=== PATIENT | male | born 1950 | race Caucasian/White ===

== ENCOUNTER 2019-06-13 06:52 | Day surgery (SDC) | payer OTHER ==
--- OUTSIDE RECORDS SUMMARY | 2019-06-13 06:54 | XMS REPORT | Continuity of Care Document ---
:1950 Author Organization [facility] Address [address] [place] [address] Phone Unavailable Care Team Providers Name Role Phone ANCELMO TOBIN MD Primary Care Physician Insurance Providers Guarantor Leydi Zimmer Address [address] [place] [address] Email [email or web address] [facility] Policy Number [id number] Subscriber's Name Leydi Zimmer Relationship Self / Same As Patient Group Number [id number] Group Name NA Advance Directives Directive Response Recorded Date/Time Advance Directives No 02/18/16 1:04am Advance Directive on File No 02/04/19 6:29pm Directive to Physicians/Living Will No 02/18/16 1:04am Health Care Proxy No 02/18/16 1:04am Name of Surrogate/Decision Maker NA 02/04/19 4:04pm Organ Donor No 02/18/16 1:04am Medical Power of Maternal Fetal Physician No 02/18/16 1:04am Patient/Family Given Education Material R/T Directives? Yes 02/04/19 6:29pm Chief Complaint and Reason for Visit Chief Complaint ANEMIA Reason for Visit Anemia Problems Medical Problem Onset Date Status ARF (acute renal failure) Unknown Acute Acute respiratory failure with hypoxemia Unknown Acute Afib Unknown Acute Anemia Unknown Acute Diabetes Unknown Chronic Hypotension Unknown Acute Osteoarthritis of hip Unknown Acute Pneumonia Unknown Acute Septic shock Unknown Acute Surgical Problem Onset Date Status Status post total hip replacement, left Unknown Acute Medications Current Home Medications Medication Dose Units Route Directions Days Qty Instructions Start Date Atorvastatin Calcium 1 Tab ORAL Daily 90 (Lipitor *) 20 Mg Tablet Tab Benzonatate 100 Mg ORAL Three Times 5 Days 3015 Cap (Tessalon *) 100 Mg Daily As 9 Cap Needed as needed for Cough Cefdinir (Omnicef*) 1 Cap ORAL Twice A Day 5 Days 1410 Cap 300 Mg Cap for 9 Bronchitis Glipizide (Glucotrol 5 Mg ORAL Twice A Day *) 5 Mg Tab Hydromorphone Hcl 8 Mg ORAL Every 4 Hours (Dilaudid 8 Mg *) 8 As Needed Mg Tab Lisinopril & 1 Tab ORAL Daily 30 Days 30 Hydrochlorothiazi * Tablet (Lisinopril/Hctz 20/12.5 Mg *) 1 Tab Tab Metformin Hcl 500 Mg ORAL Three Times A (Glucophage *) 500 Day Mg Tab Pioglitazone Hcl 30 Mg ORAL Daily 30 Days 30 (Actos *) 30 Mg Tab Tablet Past Home Medications Medication Directions Ordered Status Amlodipine Besylate (Norvasc *) 10 Daily Discontinued Mg Tab, 10 Mg Oral Diclofenac/Misoprostol (Arthrotec 75 Twice A Day Discontinued *) 1 Ea Tab, 1 Tab Oral Enoxaparin * (Lovenox 30 Mg/0.3 Ml Q12@05,17 for Dvt 12/19/16 Discontinued *) 30 Mg/0.3 Ml Inj, 30 Mg Subcutaneous Gabapentin (Neurontin *) 300 Mg Cap, Twice A Day Discontinued 300 Mg Oral Glyburide-Metformin 2.5/500MG * Once Daily Discontinued (Glucovance 2.5/500 Mg *) 1 Tab Tab, 1 Tab Oral Hydrochlorothiazide Daily Discontinued (Hydrochlorothiazide *) 25 Mg Tab, 1 Tab Oral Hydrocodone-Acetaminophen 10/325MG* Every 6 Hours As Needed for 12/19/16 Discontinued ([place] 10/325 Mg *) 1 Tab Tab, 1 Tab Pain Oral Hydromorphone Hcl (Hydromorphone Hcl Every 6 Hours As Needed Discontinued 4 Mg) 4 Mg Tab, 1-2 Tab Oral Hydromorphone Hcl (Hydromorphone Hcl Discontinued 4 Mg) 4 Mg Tab, Lisinopril (Prinivil 20 Mg*) 20 Mg Daily Discontinued Tab, 20 Mg Oral Lisinopril 5 Mg Tab, Discontinued Lisinopril & Hydrochlorothiazi * Once Daily Discontinued (Lisinopril/Hctz 20/25 Mg *) 1 Tab Tab, 1 Tab Oral Metformin Hcl (Glucophage *) 500 Mg Three Times A Day Discontinued Tab, 500 Mg Oral Rivaroxaban (Xarelto *) 10 Mg Tab, Daily Discontinued 15 Mg Oral Social History Social History Problem Response Recorded Date/Time Onset Date Status Hx Alcohol Use No 04/16/2017 8:38am Not Applicable Not Applicable Hx Physical Abuse No 02/04/2019 4:00pm Not Applicable Not Applicable Smoking Status Start Date Stop Date Former smoker Hospital Discharge Instructions No hospital discharge instruction information available. Plan of Care Discharge Date 02/05/19 3:08pm Disposition PATIENT DISCHARGE HOME OR SELF Instructions/Education Provided Cefdinir capsules Anemia Benzonatate capsules Forms Provided Portal Welcome Letter Prescriptions See Medication Section Functional Status No functional status information available. Allergies, Adverse Reactions, Alerts No known allergies. Immunizations No immunization information available. Vital Signs Acute Vital Signs Vital Response Date/Time Blood Pressure 115/65 mm Hg 02/05/2019 3:01pm Pulse Pulse Rate (adult) 81 beats per minute (60 - 100) 02/05/2019 3:01pm Respiratory Rate 14 breaths per minute (10 - 24) 02/05/2019 3:01pm Temperature Source Tympanic 02/05/2019 6:55am Height 5 ft 6 in 02/04/2019 4:00pm Weight 126.56 lb 02/05/2019 5:31am Body Mass Index 20.4 kg/m^2 02/05/2019 5:31am Results Laboratory Results Test Name Result Units Flags Reference Collection Result Comments Date/Time Date/Time White Blood Count 9.5 K/ul 4.0-12.3 02/05/2019 02/05/2019 6:03am 6:26am Red Blood Count 4.47 M/ul 3.80-5.80 02/05/2019 02/05/2019 6:03am 6:26am Hemoglobin 10.2 g/dl L 11.67-17.2 02/05/2019 02/05/2019 2 6:03am 6:26am Hematocrit 34.3 % #L 35.0-51.0 02/05/2019 02/05/2019 6:03am 6:26am Mean Corpuscular 76.8 fl L 78-96 02/05/2019 02/05/2019 Volume 6:03am 6:26am Mean Corpuscular 22.8 pg L 26.8-33.4 02/05/2019 02/05/2019 Hemoglobin 6:03am 6:26am Mean Corpuscular 29.7 g/dl L 32.3-36.7 02/05/2019 02/05/2019 Hemoglobin Concent 6:03am 6:26am Red Cell 21.1 % H 11.6-15.4 02/05/2019 02/05/2019 Distribution Width 6:03am 6:26am Platelet Count 352 K/ul #H 115-328 02/05/2019 02/05/2019 6:03am 6:26am Mean Platelet 6.1 fl L 8.4-11.8 02/05/2019 02/05/2019 Volume 6:03am 6:26am Neutrophils (%) 80.9 % 44.7-82.4 02/05/2019 02/05/2019 (Auto) 6:03am 6:26am Lymphocytes (%) 9.3 % L 10.0-50.0 02/05/2019 02/05/2019 (Auto) 6:03am 6:26am Monocytes (%) 8.5 % 3.9-13.4 02/05/2019 02/05/2019 (Auto) 6:03am 6:26am Eosinophils (%) 0.7 % 0.0-6.43 02/05/2019 02/05/2019 (Auto) 6:03am 6:26am Basophils (%) 0.6 % 0.0-0.72 02/05/2019 02/05/2019 (Auto) 6:03am 6:26am Neutrophils 76 37.0-80.0 02/04/2019 02/04/2019 4:35pm 5:33pm Band Neutrophils 6 H 0-3 02/04/2019 02/04/2019 4:35pm 5:33pm Lymphocytes 12 10-50 02/04/2019 02/04/2019 (Manual) 4:35pm 5:33pm Atypical 0 0 02/04/2019 02/04/2019 Lymphocytes 4:35pm 5:33pm Monocytes (Manual) 4 0-12 02/04/2019 02/04/2019 4:35pm 5:33pm Eosinophils 2 0-7 02/04/2019 02/04/2019 (Manual) 4:35pm 5:33pm Basophils (Manual) 0 0-3 02/04/2019 02/04/2019 4:35pm 5:33pm Platelet Estimate APPEAR ADEQUATE 02/04/2019 02/04/2019 INCREASED 4:35pm 5:33pm Abnormal Platelet NORMAL NORMAL 02/04/2019 02/04/2019 Morphology 4:35pm 5:33pm Hypochromasia 1+ H 02/04/2019 02/04/2019 4:35pm 5:33pm Poikilocytosis SLIGHT H 02/04/2019 02/04/2019 4:35pm 5:33pm Anisocytosis 1+ H 02/04/2019 02/04/2019 4:35pm 5:33pm Microcytosis 2+ 02/04/2019 02/04/2019 4:35pm 5:33pm Target Cells 1+ H 02/04/2019 02/04/2019 4:35pm 5:33pm Toxic Granulation 1+ H 02/04/2019 02/04/2019 4:35pm 5:33pm Rouleau SLIGHT H 02/04/2019 02/04/2019 4:35pm 5:33pm POC Capillary 145 mg/dL H 70.0 - 110 02/05/2019 02/05/2019 Blood Glucose 11:45am 11:48am (Chem) Random Glucose 104 mg/dL 82-115 02/05/2019 02/05/2019 6:03am 6:25am Blood Urea 17 mg/dL 8-23 02/05/2019 02/05/2019 Nitrogen 6:03am 6:25am Serum Osmolality 266 L 280-300 02/05/2019 02/05/2019 6:03am 6:25am Creatinine 1.0 mg/dL 0.70-1.20 02/05/2019 02/05/2019 6:03am 6:25am Glomerular > 60.00 02/05/2019 02/05/2019 GFR RESULTS ARE REPORTED IN mL/min/1.73m2. Filtration Rate 6:03am 6:25am Calc Normal GFR: >60mL/min Moderately decreased GFR: 30-59 mL/min Severely decreased GFR: 15-29 mL/min Kidney Failure (or Dialysis): <15 mL/min The calculated eGFR is not valid for patients younger than 18 years or older than 75 years. BUN/Creatinine 17.0 12-20 02/05/2019 02/05/2019 Ratio 6:03am 6:25am Sodium Level 132 mmol/L L 135-145 02/05/2019 02/05/2019 6:03am 6:25am Potassium Level 4.6 mmol/L 3.5-5.2 02/05/2019 02/05/2019 6:03am 6:25am Chloride Level 95 mmol/L L 98-108 02/05/2019 02/05/2019 6:03am 6:25am Carbon Dioxide 26 mmol/L 21-32 02/05/2019 02/05/2019 Level 6:03am 6:25am Anion Gap 15.6 mEq/L 12-20 02/05/2019 02/05/2019 6:03am 6:25am Calcium Level 8.8 mg/dL 8.8-10.2 02/05/2019 02/05/2019 6:03am 6:25am Total Protein 7.4 g/dL 6.6-8.7 02/04/2019 02/04/2019 4:35pm 5:09pm Albumin 3.8 g/dL 3.5-5.2 02/04/2019 02/04/2019 4:35pm 5:09pm Globulin 3.6 gm/dL 02/04/2019 02/04/2019 4:35pm 5:09pm Albumin/Globulin 1.1 >1.0 02/04/2019 02/04/2019 Ratio 4:35pm 5:09pm Total Bilirubin 0.5 mg/dL 0.0-1.2 02/04/2019 02/04/2019 4:35pm 5:09pm Aspartate Amino 34 U/L 15-40 02/04/2019 02/04/2019 TEST RESULT Transf (AST/SGOT) 4:35pm 5:09pm INTERFERENCE DUE TO HEMOLYSIS. Alanine 13 U/L 0-41 02/04/2019 02/04/2019 Aminotransferase 4:35pm 5:09pm (ALT/SGPT) Total Alkaline 110 U/L 40-130 02/04/2019 02/04/2019 Phosphatase 4:35pm 5:09pm Pending Laboratory Results Test Name Collection Date/Time Mean Corpuscular Volume 02/04/2019 4:35pm Differential Comment 02/04/2019 4:35pm Procedures Procedure Status Date Provider(s) X-RAY EXAM HIP UNI 2-3 VIEWS Completed 12/13/18 X-ray of chest, single view Completed 02/05/19 SILVIA HILL MD Encounters Encounter Location Arrival/Admit Date Discharge/Depart Date Attending Provider Discharged [place] 02/04/19 5:45pm 02/05/19 3:08pm SILVIA HILL [facility] Registered [place] 12/13/18 10:45am [facility] Recent Diagnosis Anemia
--- OUTSIDE RECORDS SUMMARY | 2019-06-13 06:55 | XMS REPORT | Continuity of Care Document ---
:1950 Author Organization [facility] Address [address] [place] [address] Phone Unavailable Care Team Providers Name Role Phone ANCELMO TOBIN MD Primary Care Physician Insurance Providers Guarantor GoranLeydi Address [facility] [place] [address] Email [email or web address] [facility] Policy Number [id number] Subscriber's Name Leydi Zimmer Relationship Self / Same As Patient Group Number [id number] Group Name NA Advance Directives Directive Response Recorded Date/Time Advance Directives No 02/18/16 1:04am Directive to Physicians/Living Will No 02/18/16 1:04am Health Care Proxy No 02/18/16 1:04am Organ Donor No 02/18/16 1:04am Medical Power of Graduate Engineer No 02/18/16 1:04am Patient/Family Given Education Material R/T Directives? Yes 03/27/19 10:04am Problems Medical Problem Onset Date Status ARF (acute renal failure) Unknown Acute Acute respiratory failure with hypoxemia Unknown Acute Afib Unknown Acute Anemia Unknown Acute Diabetes Unknown Chronic Hypotension Unknown Acute Left hip pain Unknown Osteoarthritis of hip Unknown Acute Pneumonia Unknown Acute Septic shock Unknown Acute Unsteady gait Unknown Surgical Problem Onset Date Status Status post [...] Oral Enoxaparin * (Lovenox 30 Mg/0.3 Ml Q12@,17 for Dvt 12/19/16 Discontinued *) 30 Mg/0.3 Ml Inj, 30 Mg Subcutaneous Gabapentin (Neurontin *) 300 Mg Cap, Twice A Day Discontinued 300 Mg Oral Glyburide-Metformin 2.5/500MG * Once Daily Discontinued (Glucovance 2.5/500 Mg *) 1 Tab Tab, 1 Tab Oral Hydrochlorothiazide Daily Discontinued (Hydrochlorothiazide *) 25 Mg Tab, 1 Tab Oral Hydrocodone-Acetaminophen 10/325MG* Every 6 Hours As Needed for 12/19/16 Discontinued ([place] 10/325 Mg *) 1 Tab Tab, 1 [...] discharge instruction information available. Plan of Care Prescriptions See Medication Section Functional Status No [...] 02/05/2019 3:01pm Temperature Source Tympanic 02/05/2019 6:55am Results Laboratory Results Test Name Result Units Flags Reference Collection Result Comments Date/Time Date/Time White Blood 9.5 K/ul 4.0-12.3 02/05/2019 02/05/2019 Count 6:03am 6:26am Red Blood 4.47 M/ul 3.80-5.80 02/05/2019 02/05/2019 Count 6:03am 6:26am Hemoglobin 10.2 g/dl L 11.67-17.2 02/05/2019 02/05/2019 2 6:03am 6:26am Hematocrit 34.3 % #L 35.0-51.0 02/05/2019 02/05/2019 6:03am 6:26am Mean 68.0 fl L 78-96 02/04/2019 03/04/2019 Corpuscular 4:35pm 3:35pm Volume Mean 22.8 pg L 26.8-33.4 02/05/2019 02/05/2019 Corpuscular 6:03am 6:26am Hemoglobin Mean 29.7 g/dl L 32.3-36.7 02/05/2019 02/05/2019 Corpuscular 6:03am 6:26am Hemoglobin Concent Red Cell 21.1 % H 11.6-15.4 02/05/2019 02/05/2019 Distribution 6:03am 6:26am Width Platelet Count 352 K/ul #H 115-328 02/05/2019 02/05/2019 6:03am 6:26am Mean Platelet 6.1 fl L 8.4-11.8 02/05/2019 02/05/2019 Volume 6:03am 6:26am Neutrophils 80.9 % 44.7-82.4 02/05/2019 02/05/2019 (%) (Auto) 6:03am 6:26am Lymphocytes 9.3 % L 10.0-50.0 02/05/2019 02/05/2019 (%) (Auto) 6:03am 6:26am Monocytes (%) 8.5 % 3.9-13.4 02/05/2019 02/05/2019 (Auto) 6:03am 6:26am Eosinophils 0.7 % 0.0-6.43 02/05/2019 02/05/2019 (%) (Auto) 6:03am 6:26am Basophils (%) 0.6 % 0.0-0.72 02/05/2019 02/05/2019 (Auto) 6:03am 6:26am Neutrophils 76 37.0-80.0 02/04/2019 02/04/2019 4:35pm 5:33pm Band 6 H 0-3 02/04/2019 02/04/2019 Neutrophils 4:35pm 5:33pm Lymphocytes 12 10-50 02/04/2019 02/04/2019 (Manual) 4:35pm 5:33pm Atypical 0 0 02/04/2019 02/04/2019 Lymphocytes 4:35pm 5:33pm Monocytes 4 0-12 02/04/2019 02/04/2019 (Manual) 4:35pm 5:33pm Eosinophils 2 0-7 02/04/2019 02/04/2019 (Manual) 4:35pm 5:33pm Basophils 0 0-3 02/04/2019 02/04/2019 (Manual) 4:35pm 5:33pm Platelet APPEAR ADEQUATE 02/04/2019 02/04/2019 Estimate INCREASED 4:35pm 5:33pm Abnormal NORMAL NORMAL 02/04/2019 02/04/2019 Platelet 4:35pm 5:33pm Morphology Hypochromasia 1+ H 02/04/2019 02/04/2019 4:35pm 5:33pm Poikilocytosis SLIGHT H 02/04/2019 02/04/2019 4:35pm 5:33pm Anisocytosis 1+ H 02/04/2019 02/04/2019 4:35pm 5:33pm Microcytosis 2+ 02/04/2019 02/04/2019 4:35pm 5:33pm Target Cells 1+ H 02/04/2019 02/04/2019 4:35pm 5:33pm Toxic 1+ H 02/04/2019 02/04/2019 Granulation 4:35pm 5:33pm Rouleau SLIGHT H 02/04/2019 02/04/2019 4:35pm 5:33pm Differential PATH REVIEW 02/04/2019 02/08/2019 Comment 4:35pm 2:01am - NEUTROPHILIA - MICROCYTIC ANEMIA - MILD THROMBOCYTOSIS Wendy ZAVALA M.D. POC Capillary 145 mg/dL H 70.0 - 110 02/05/2019 02/05/2019 Blood Glucose 11:45am 11:48am (Chem) Random Glucose 104 mg/dL 82-115 02/05/2019 02/05/2019 6:03am 6:25am Blood Urea 17 mg/dL 8-23 02/05/2019 02/05/2019 Nitrogen 6:03am 6:25am Serum 266 L 280-300 02/05/2019 02/05/2019 Osmolality 6:03am 6:25am Creatinine 1.0 mg/dL 0.70-1.20 02/05/2019 02/05/2019 6:03am 6:25am Glomerular > 60.00 02/05/2019 02/05/2019 GFR RESULTS ARE REPORTED IN mL/min/1.73m2. Filtration 6:03am 6:25am Rate Calc Normal GFR: >60mL/min Moderately decreased GFR: 30-59 mL/min Severely decreased GFR: 15-29 mL/min Kidney Failure (or Dialysis): <15 mL/min The calculated eGFR is not valid for patients younger than 18 years or older than 75 years. BUN/Creatinine 17.0 12-20 02/05/2019 02/05/2019 Ratio 6:03am 6:25am Sodium Level 132 mmol/L L 135-145 02/05/2019 02/05/2019 6:03am 6:25am Potassium 4.6 mmol/L 3.5-5.2 02/05/2019 02/05/2019 Level 6:03am 6:25am Chloride Level 95 mmol/L L [...] Globulin 3.6 gm/dL 02/04/2019 02/04/2019 4:35pm 5:09pm Albumin/Globul 1.1 >1.0 02/04/2019 02/04/2019 in Ratio 4:35pm 5:09pm Total 0.5 mg/dL 0.0-1.2 02/04/2019 02/04/2019 Bilirubin 4:35pm 5:09pm Aspartate 34 U/L 15-40 02/04/2019 02/04/2019 TEST RESULT Amino Transf 4:35pm 5:09pm INTERFERENCE (AST/SGOT) DUE TO HEMOLYSIS. Alanine 13 U/L 0-41 02/04/2019 02/04/2019 Aminotransfera 4:35pm 5:09pm se (ALT/SGPT) Total Alkaline 110 U/L 40-130 02/04/2019 02/04/2019 Phosphatase 4:35pm 5:09pm Procedures Procedure Status Date Provider(s) TRANSFUSE NONAUT RED BLOOD CELLS IN PERIPH VEIN, Completed 02/04/19 TEE EASTON MD [facility] X-ray of chest, single view Completed 02/05/19 SILVIA HILL MD Encounters Encounter Location Arrival/Admit Date Discharge/Depart Date Attending Provider Discharged [place] 03/27/19 10:09am 03/28/19 11:59pm [facility]ELMO TOBIN [facility] Discharged [place] 02/04/19 5:45pm 02/05/19 3:08pm [facility] Recent Diagnosis Unsteady gait Left hip pain
--- OUTSIDE RECORDS SUMMARY | 2019-06-13 06:55 | XMS REPORT | Continuity of Care Document ---
:1950 Author Organization [facility] Address [address] [place] [address] Phone Unavailable Care Team Providers Name Role Phone ANCELMO TOBIN MD Primary Care Physician Insurance Providers Guarantor GoranLeydi Address [facility] [place] [address] Email [email or web address] Policy Number [id number] Subscriber's Name Leydi Zimmer Relationship Self / Same As Patient Group Number [id number] Group Name NA Advance Directives Directive Response Recorded Date/Time Advance Directives No 02/18/16 1:04am Directive to Physicians/Living Will No 02/18/16 1:04am Health Care Proxy No 02/18/16 1:04am Organ Donor No 02/18/16 1:04am Medical Power of [employer] No 02/18/16 1:04am Problems Medical Problem Onset Date Status ARF [...] 6 Hours As Needed for 12/19/16 Discontinued ([place] 10/325 Mg *) 1 Tab Tab, 1 [...] Stop Date Former smoker Hospital Discharge Instructions Current inpatient/outpatient. Discharge instructions are currently unavailable. Plan of Care Current inpatient/outpatient. The plan of care is currently unavailable. Functional Status No functional status information available. Allergies, Adverse Reactions, Alerts No known allergies. Immunizations No immunization information available. Vital Signs No vital sign information available. Results No relevant diagnostic test, laboratory data and/or discharge summary information available. Procedures Procedure Status Date Provider(s) THERAPEUTIC EXERCISES Completed 03/27/19 PT EVAL MOD COMPLEX 30 MIN Completed 03/27/19 MOBILITY CURRENT STATUS Completed 03/27/19 MOBILITY GOAL STATUS Completed 03/27/19 CONTRAST X-RAY ESOPHAGUS Completed 04/18/19 TTE W/DOPPLER COMPLETE Completed 04/25/19 Esophagram Completed 04/18/19 ANCELMO TOBIN MD Encounters Encounter Location Arrival/Admit Date Discharge/Depart Date Attending Provider Discharged [place] 04/25/19 3:00pm 04/28/19 11:59pm ANCELMO TOBIN MD [facility] Registered [place] 04/25/19 1:14pm ANCELMO TOBIN MD [facility] Registered [place] 04/18/19 10:45am ANCELMO TOBIN MD [facility] Discharged [place] 03/27/19 10:09am 03/28/19 11:59pm ANCELMO TOBIN MD Medical Ctr
[2019-06-13] MEDS ORDERED: NA CHLORIDE 0.9% 1,000 ML ONE (08:59)
[2019-06-13] MEDS ORDERED: POTASSIUM CL SA 10 MEQ TAB PO ONE (09:45)
[2019-06-13] MEDS ORDERED: LIDOCAINE 1% MPF 5 ML VIAL ONE (09:51)
[2019-06-13] MEDS ORDERED: PROPOFOL 200 MG/20 ML VIAL IV ONE (09:51)
--- NOTE | 2019-06-13 10:01 | ENDO RPT ---
[address], [address] EGD PROCEDURE REPORT EXAM DATE: 06/13/2019 PATIENT NAME: Chas Patterson MR#: [id number] BIRTHDATE: 1950 ATTENDING: Quan Naidu Dr STATUS: outpatient CORRECTIONAL THERAPY DIRECTOR: Jeanine Knutson, Lyle Lindquist RN, and Hafsa Das RN INDICATIONS: The patient is a 68 yr old Male here for an EGD due to dysphagia, GERD, mid epigastric abdominal pain, left upper quadrant abdominal pain, and weight loss PROCEDURE PERFORMED: EGD with biopsy MEDICATIONS: Per Anesthesia. TOPICAL ANESTHETIC: none CONSENT: The patient understands the risks and benefits of the procedure and understands that these risks include, but are not limited to: sedation, allergic reaction, infection, perforation and/or bleeding. Alternative means of evaluation and treatment include, among others: physical exam, x-rays, and/or surgical intervention. The patient elects to proceed with this endoscopic procedure. DESCRIPTION OF PROCEDURE: During intra-op preparation period all mechanical medical equipment was checked for proper function. Hand hygiene and appropriate measures for infection prevention was taken. Procedure, possible complications, and alternatives including but not limited to the possibility of bleeding, perforation, tear, infection, sepsis, need for surgery, need for blood transfusion, and anesthesia related complications were explained to the patient. After the risks, benefits and alternatives of the procedure were thoroughly explained, Informed consent was verified, confirmed and timeout was successfully executed by the treatment team. The patient was placed in the left lateral position. The patient was anesthetized with topical anesthesia. Through the anesthetized oropharyngeal area, the scope was passed without any difficulty. The Pentax [id number] ([id number]) endoscope was introduced through the mouth and advanced to the esophagus lower. Retroflexion was not performed. The gastroscope was then slowly withdrawn and removed. Numerous yellow-white plaques with confluence were found in the total esophagus. A mass was found in the lower esophagus. Multiple biopsies were obtained and sent to pathology. ADVERSE EVENTS: There were no complications. IMPRESSIONS: 1. Numerous yellow-white plaques with confluence in the total esophagus -> Kimi esophagitis 2. 2.2 cm near obstructing mass ( endoscope) in the lower esophagus, s/p biopsies RECOMMENDATIONS: 1. await biopsy results 2. Diflucan therapy REPEAT EXAM: Quan Naidu Dr eSigned: Quan Naidu Dr 06/13/2019 10:00 AM cc: Pete Coats CPT CODES: ICD9 CODES: PATIENT NAME: Chas Patterson MR#: [id number]
== END 2019-06-13 10:40 | disposition home or self-care (01) ==
LOC: OR 06:52
PROVIDERS: ATTEND Internal Medicine Gastroenterology
PROC: 0DB38ZX Excision of Lower Esophagus, Via Natural or Artificial Opening Endoscopic, Diagnostic (ICD-10-PCS; principal; 2019-06-13 11:15)
DX: C15.5 Malignant neoplasm of lower third of esophagus (principal); B37.81 Candidal esophagitis; K21.0 Gastro-esophageal reflux disease with esophagitis; D64.9 Anemia, unspecified; E11.9 Type 2 diabetes mellitus without complications; E78.5 Hyperlipidemia, unspecified; I10 Essential (primary) hypertension; Z79.84 Long term (current) use of oral hypoglycemic drugs; Z79.899 Other long term (current) drug therapy
CPT/HCPCS: 43239; 82962; 88305; J2704; J7030